=== PATIENT | male | born 1985 | race Two or more races ===

== ENCOUNTER → 2022-04-21 | Day surgery (SDC) | payer OTHER ==
[~2022-04-21] VITALS: Ht 157.5 cm; Wt 61.2 kg
[~2022-04-21] MED LIST: AMLO-483 PO; CIPROFLOXACIN 400MG/200ML 200 ML IV ONE; GLYCOPYRROLATE 0.2 MG/ML 1ML VIAL ONE; MIDAZOLAM HCL 2MG/2ML 2ml VIAL (1mg/ml) ONE; ONDANSETRON HCL 4 MG/2 ML VIAL ONE; PROPOFOL 10 MG/ML 20 ML IV ONE; fentaNYL CITRATE 100 MCG/2 ML VL ONE
[2022-04-21 12:20] VITALS: BP 130/86
== END | disposition home or self-care (01) ==
LOC: SUR 07:40 → EDUNIT# 09:00
PROVIDERS: ATTEND Urology
DX: N35.811 Other urethral stricture, male, meatal (principal); N13.9 Obstructive and reflux uropathy, unspecified; I10 Essential (primary) hypertension; Z20.822 Contact with and (suspected) exposure to COVID-19
CPT/HCPCS: 53600; C1769; J0744; J2250; J2405; J2704; J3010; J7030; U0003